=== PATIENT | female | born 1990 | race Caucasian/White ===

== ENCOUNTER 2019-09-17 14:22 | Emergency (ER) | payer MEDICAID ==
[~2019-09-17] VITALS: Ht 162.6 cm; Wt 79.4 kg
[2019-09-17 14:29] VITALS: Ht 162.6 cm; Wt 79.4 kg
[2019-09-17 15:13] LABS: BASOPHIL % 0.4 % (0-2); PLATELET COUNT 284 x10^3mcL (130-400); RED CELL DISTRIBUTION WIDTH 12.7 % (11.5-14.5)
[2019-09-17 15:32] LABS: microscopic required? NO
[2019-09-17 15:42] LABS: urine erythrocyte NEGATIVE (NEGATIVE)
[2019-09-17 16:19] VITALS: BP 110/72
== END 2019-09-17 16:14 | disposition home or self-care (01) ==
LOC: ED 14:22
PROVIDERS: Emergency Medicine
DX: O20.0 Threatened abortion (principal)
CPT/HCPCS: 36415; Q0092

== ENCOUNTER 2020-01-27 04:51 | Emergency (ER) | payer MEDICAID ==
[~2020-01-27] VITALS: Ht 160 cm; Wt 83.9 kg
[2020-01-27 04:53] VITALS: BP 126/91; Ht 160 cm; Wt 83.9 kg
== END 2020-01-27 05:41 | disposition home or self-care (01) ==
LOC: ED 04:51
DX: O26.891 Other specified pregnancy related conditions, first trimester (principal); Z3A.10 10 weeks gestation of pregnancy; Z03.818 Encounter for observation for suspected exposure to other biological agents ruled out
CPT/HCPCS: U0003-CS